=== PATIENT | male | born 1945 | race Caucasian/White ===

== ENCOUNTER 2021-04-17 17:31 | Emergency (ER) | payer MEDICARE ==
--- NOTE | 2021-04-17 17:35 | ERPHSYRPT ---
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 He was started on Xarelto full dose and has been taking this for approximately 1 week. He was concerned he had a left lower extremity blood clot because there was some swelling noted. Patient has not been elevating his legs above level of heart when he is not up and ambulating. Patient denies chest pain and denies shortness of breath. He wanted to be evaluated again and wanted to see if there is anything else he needed to do as far as the new swelling he is experiencing the left lower extremity. Severity: mild Modifying Factors: Improves With: nothing Associated Symptoms: denies symptoms Allergies/Adverse Reactions: No Known Drug Allergies Allergy (Unverified 04/17/21 17:41) Home Medications: Rivaroxaban [Xarelto] 1 tab PO DAILY 04/17/21 [History] Travel Risk - International Travel Have you traveled outside of the country in past 3 weeks: No - Coronavirus Screening Are you exhibiting any of the following symptoms?: No Close contact with a COVID-19 positive Pt in past 14-21 Days: No - Review of Systems Constitutional: No Symptoms Eyes: No Symptoms Ears, Nose, & Throat: No Symptoms Respiratory: No Symptoms Cardiac: No Symptoms Abdominal/Gastrointestinal: No Symptoms Genitourinary Symptoms: No Symptoms Musculoskeletal: No Symptoms Skin: No Symptoms Neurological: No Symptoms Psychological: No Symptoms Endocrine: No Symptoms Hematologic/Lymphatic: No Symptoms Immunological/Allergic: No Symptoms All Other Systems: Reviewed and Negative - Past Medical History Pertinent Past Medical History: Yes - Past Surgical History Past Surgical History: Yes - Nursing Vital Signs Nursing Vital Signs: Initial Vital Signs Temperature 98.0 F 04/17/21 17:42 Pulse Rate 66 04/17/21 17:42 Respiratory Rate 18 04/17/21 17:42 Blood Pressure 168/88 04/17/21 17:42 O2 Sat by Pulse Oximetry 99 04/17/21 17:42 Pain Scale Pain Intensity 0 - Physical Exam General Appearance: no apparent distress, alert, thin Eye Exam: PERRL/EOMI, eyes nml inspection Ears, Nose, Throat Exam: normal ENT inspection, moist mucous membranes Neck Exam: normal inspection, non-tender, supple, full range of motion Respiratory Exam: normal breath sounds, lungs clear, airway intact, No chest tenderness, No respiratory distress Cardiovascular Exam: regular rate/rhythm, normal heart sounds, normal peripheral pulses Gastrointestinal/Abdomen Exam: soft, normal bowel sounds, No tenderness Back Exam: normal inspection, normal range of motion, No CVA tenderness, No vertebral tenderness Extremity Exam: normal range of motion, pelvis stable, other (No significant left lower extremity swelling. There is some swelling in his right lower extremity where he has the documented DVT. There is no evidence of cellulitis in either extremity.) Neurologic Exam: alert, oriented x 3, cooperative, ambulance attendant II-XII nml as tested, normal mood/affect, nml cerebellar function, nml station & gait Skin Exam: normal color, warm, dry Lymphatic Exam: No adenopathy SpO2 Interpretation: normal O2 Delivery: Room Air - Course Nursing assessment & vital signs reviewed: Yes - Progress Progress: unchanged Progress Note: 04/17/21 18:07 This patient is fully anticoagulated at this point. He has been on Xarelto at full dose for approximately 1 week. Patient needed reassurance that there was or was not anything else to do because he noticed left lower extremity swelling. I do not appreciate any edema or swelling the left lower extremity. There is some persistent edema/swelling in the right lower extremity. However, he states this is improving. I do not think it is necessary for the patient to have a repeat venous Doppler of the left lower extremity. If a left lower extremity venous Doppler study was positive for a deep venous thrombosis, patient is already on the medication he should be on. Patient is not symptomatic and therefore he is to continue his medication as prescribed and follow-up with his primary prescribing doctor. He was told to elevate his lower extremities above the level of the heart when he is not ambulating. Counseled pt/family regarding: diagnosis, need for follow-up - Departure Departure Disposition: Home Clinical Impression: Encounter for medical screening examination, Reassurance provided Condition: Stable Critical Care Time: No Referrals: PARRIS DURHAM MD [Primary Care Provider] - Follow up/PCP as directed Additional Instructions: Continue your medication as prescribed. When not ambulating, elevate both your lower extremities above the level of your heart. Follow-up with your primary prescribing doctor for further evaluation and management.
[2021-04-17 17:52] VITALS: BP 168/88; PULSE 66; O2SAT 99
== END 2021-04-17 18:20 | disposition home or self-care (01) ==
LOC: ED 17:31
DX: Z00.8 Encounter for other general examination (principal); R60.0 Localized edema; Z86.718 Personal history of other venous thrombosis and embolism; Z79.01 Long term (current) use of anticoagulants
CPT/HCPCS: 99283